=== PATIENT | male | born 2000 ===

== ENCOUNTER 2024-11-26 15:34 | Emergency (ER) | payer OTHER, SELFPAY ==
[2024-11-26 15:37] VITALS: BP 119/74; PULSE 87; RESP 16; TEMP 36.8; O2SAT 98; BMI 25.2
--- NOTE | 2024-11-26 16:05 | ED.BACK ---
HPI - Back Pain/Injury General Chief Complaint: Back Injury/Pain Stated Complaint: lower back pain Time Seen by Provider: 11/26/24 15:52 History of Present Illness HPI Narrative: This 24-year-old male comes in reporting low back pain for the past couple months. He does not report any particular injury event or strenuous activity to trigger this pain. He states that the pain does not radiate down either leg. He has been using [id number] medications without much relief. Related Data Previous Rx's ?Medication ?Instructions ?Recorded cyclobenzaprine 10 mg tablet 10 mg PO TID #15 tabs 11/26/24 ketorolac 10 mg tablet 10 mg PO TID 5 days #15 tabs 11/26/24 methylprednisolone 4 mg tablets in See Rx Instructions PO .COMPLEX 11/26/24 a dose pack (Medrol (Solomon)) #21 ea Allergies Allergy/AdvReac Type Severity Reaction Status Date / Time No Known Drug Allergies Allergy Verified 11/26/24 15:47 Review of Systems Status of ROS: Reports: 10 or more systems reviewed and unremarkable except as noted in History and below Narrative: Constitutional: No fevers, no weight gain or loss. Eyes: No discharge. No vision changes. HENT: No congestion, no sore throat, no ear pain. Cardiovascular: No chest pain, no palpitations. Respiratory: No shortness of breath, no wheezes, no cough. Gastrointestinal: No abdominal pain, no vomiting, no diarrhea. Genitourinary: No dysuria, no hematuria. Musculoskeletal: Normal range of motion. Low back pain as described above. Skin: No rashes, no pruritis. Neurological: No dizziness, weakness, sensory change, speech change. Endo/Heme/Allergies: No bruising or bleeding. No polydipsia. Pysch: no suicidality, no anxiety, no insomnia. All other systems reviewed and are negative. Exam Narrative: Exam Narrative: Constitutional: Well-developed, well-nourished, no acute distress. HEENT: Normocephalic, atraumatic. Neck: Normal range of motion. Nontender. Supple. Heart: Regular. No murmurs. Normal rate. Intact distal pulses. Lungs: Clear to auscultation. No chest discomfort. No wheezes, rhonchi, or rales. Abdomen: Normal bowel sounds. Nontender. No rebound tenderness. Genitalia: Deferred. Back: No midline tenderness. Normal range of motion. Diffuse pain bilaterally in the low back that does not radiate down either leg. Straight leg raise is negative bilaterally. Extremities: Normal range of motion. No injury. Skin: Intact. No rash. Warm. No erythema or pallor. Neurologic: No altered sensation. No weakness. Alert and oriented. Psychiatric: No suicidality. No anxiety or depression. No insomnia. Nursing notes and vitals signs are reviewed. Const: Vital Signs, click to edit/add: Vital Signs - 24 hr 11/26/24 15:37 Temperature 98.2 F Pulse Rate [Pulse Oximeter] 87 Respiratory Rate 16 Blood Pressure [Ri t Upper Arm] 119/74 Pulse Oximetry 98 Oxygen Delivery Me thod Room Air Course Vital Signs Vital signs: Initial Vital Signs Temperature 98.2 F 11/26/24 15:37 Temperature Source Temporal Artery Scan 11/26/24 15:37 Pulse Rate 87 11/26/24 15:37 Respiratory Rate 16 11/26/24 15:37 Blood Pressure 119/74 11/26/24 15:37 Blood Pressure Mean 89 11/26/24 15:37 Pulse Oximetry 98 11/26/24 15:37 Oxygen Delivery Method Room Air 11/26/24 15:37 Vital Signs Temperature 98.2 F 11/26/24 15:37 Pulse Rate 87 11/26/24 15:37 Respiratory Rate 16 11/26/24 15:37 Blood Pressure 119/74 11/26/24 15:37 Pulse Oximetry 98 11/26/24 15:37 Oxygen Delivery Method Room Air 11/26/24 15:37 Temperature 98.2 F 11/26/24 15:37 Pulse Rate 87 11/26/24 15:37 Respiratory Rate 16 11/26/24 15:37 Blood Pressure 119/74 11/26/24 15:37 Pulse Oximetry 98 11/26/24 15:37 Oxygen Delivery Method Room Air 11/26/24 15:37 MDM - Back Pain/Injury MDM Narrative Medical decision making narrative: This patient comes in with 2 months of low back pain. He did not have any mechanism of injury that mandates imaging at this time. He does not have any symptoms radiating as though it were a nerve impingement. He has been taking [id number] meds without much relief. I did prescribe Toradol, Flexeril, and Medrol Dosepak and encouraged him to follow-up with our spine clinic for further opportunities as needed. Discharge Plan Discharge Clinical Impression: Low back pain Patient Disposition: Home, Self-Care Condition: Stable Additional Instructions: Take medication as needed and indicated. Follow-up with spine clinic for ongoing management. Call [phone] for appointment. Prescriptions: New cyclobenzaprine 10 mg tablet 10 mg PO TID Qty: 15 0RF ketorolac 10 mg tablet 10 mg PO TID 5 Days Qty: 15 0RF methylprednisolone [Medrol ([place])] 4 mg tablets,dose pack See Rx Instructions .ROUTE .COMPLEX Qty: 21 0RF Rx Instructions: orally per package directions Stand Alone Forms: Image Metrics Info Instructions
== END 2024-11-26 16:38 | disposition home or self-care (01) ==
LOC: ED 16:35
PROVIDERS: Emergency Provider Emergency Medicine Emergency Medical Services
DX: M54.50 Low back pain, unspecified (principal)
CPT/HCPCS: 99283; 99284